=== PATIENT | male | born 1955 | race Asian ===

== ENCOUNTER 2016-06-25 16:18 | Inpatient (IN) | payer OTHER ==
[~2016-06-25] VITALS: Ht 172.7 cm; Wt 136.7 kg
[~2016-06-25 16:18] MED LIST: ALBU8.5H2 IH; CELE200C PO; FLUT1DIS5 IH; METO-272 PO; OMEP-113 PO; WARF10TA4 PO
[2016-06-25 16:34] VITALS: BP 151/86; PULSE 101; RESP 19; O2SAT 100
--- NOTE | 2016-06-25 16:47 | ED.REPORT ---
HPI-Chest Pain 40 and Over Date of Service June 25, 2016 ED Provider: Clair Doan MD 61 y/o male with a hx of DVT and asthma presents to the ED complaining of intermittent chest pain, onset just prior to arrival that lasts a couple of minutes. The pt was at his cardiology appointment when he began experiencing pain and was sent to the ED. He describes it as pressure on the left side of his chest, which worsens with walking. The pt reports this pain has been intermitted for a month and a half. The pt sees Dr. Harris for lower extremity edema. Associates sx include SOB and fatigue. He denies nausea and diaphoresis. He states he has been taking Lasix for a couple of weeks. The pt had pneumonia 2 months ago. Nursing Notes Stated Complaint: CARDIAC Chief Complaint: Chest Pain Nursing Notes Reviewed: Yes Allergies: Coded Allergies: No Known Allergies (Unverified Allergy, Unknown, 05/05/14) Scheduled Celecoxib (Celebrex) 200 Mg Capsule 200 MG PO DAILY Fluticasone/Salmeterol (Advair 500-50 Diskus) 1 Each Disk.w.dev 2 PUFF IH BID Metoprolol Succinate ER (Metoprolol Succinate ER) 50 Mg Tab.er.24h 50 MG PO DAILY Omeprazole Magnesium (Omeprazole) 20 Mg Capsule.dr 20 MG PO DAILY Warfarin Sodium (Warfarin Sodium) 10 Mg Tablet 15 MG PO DAILY 11/08/14 UPDATED DOSING Scheduled PRN Albuterol HFA (Proair HFA) 8.5 Gm Hfa.aer.ad 2 PUFFS IH Q4 PRN PRN For Shortness of Breath General Time Seen by MD: 16:47 Chief Complaint Chest pain Hx Obtained From: Patient Arrived By: Walk-in Sudden in Onset?: Yes Onset Occurred: Just prior to arrival Symptom Duration: 1 - 15 minutes Location: : Chest left Quality: Pressure Radiation: : Does not radiate Severity: Current: No pain currently Severity: Maximum: Mild Recent Healthcare: Recent doctor visit Similar Sx Previous: Yes Past Medical History Past Medical History No kidney problems per patient Reports: Asthma Past Surgical History Patient denies brain surgery Family History Brother has CHF and a Hx of brain aneurysm which killed him Other brother had PE recently which was taken care of Smoking History Never Smoker Social History Alcohol Use: Denies alcohol use Drug Use: Denies drug use Ambulatory Status Independent Review of Systems Constitutional: Reports: Fatigue Respiratory: Reports: Shortness of breath Cardiovascular: Reports: Chest pain, Denies: Edema GI: Denies: Nausea Skin: Denies Diaphoresis Complete sys rev & neg: except as marked. Physical Exam Initial Vital Signs Vital Signs (First) Date Time Temp Pulse Resp B/P Pulse Ox O2 Delivery O2 Flow Rate FiO2 06/25/16 16:34 37.1 101 19 151/86 100 Room Air Initial VS: Reviewed, Vital signs abnormal Head / Eyes: Atraumatic, Normocephalic, PERRL Neck: Supple, Full range of motion Extremities: Vascular intact, Neuro intact, No swelling, No tenderness Skin: Warm, Dry, No cyanosis Neurologic: Alert, Oriented, Nonfocal General/Constitutional: Awake, Alert, Cooperative Thickening of skin with lack of hair. Respiratory / Chest: Atraumatic, Breath sounds NL, Breath sounds = bilat, No respiratory distress, No rales, No rhonchi, No wheezing Cardiovascular: Heart rate NL, Regular rhythm, Heart sounds NL, No gallop, No murmurs, No rubs Lower Ext Edema: Positive: Bilateral 3+ Abdomen: Atraumatic, Soft, Non-tender, No guarding, No rebound, BS normoactive Interpretation & Diagnostics Lab Results Interpretation Result Diagram: 06/25/16 1655 06/25/16 1655 Test 06/25/16 16:55 White Blood Count 6.2th/mm3 (3.8-10.1) Red Blood Count 4.77mil/mm3 (4.40-5.80) Hemoglobin 11.6g/dL (13.8-17.2) Hematocrit 37.3% (41.0-50.0) Mean Corpuscular Volume 78.2fL (81-100) Mean Corpuscular Hemoglobin 24.3pg (27.0-35.0) Mean Corpuscular Hemoglobin Concent 31.1% (32.0-37.0) Red Cell Distribution Width 17.4% (12.3-15.4) Platelet Count 250bil/L (150-400) Neutrophils (%) (Auto) 68.5% (40-74) Lymphocytes (%) (Auto) 21.0% (14-46) Monocytes (%) (Auto) 8.6% (4-12) Eosinophils (%) (Auto) 1.3% (0-5) Basophils (%) (Auto) 0.3% (0-3) Prothrombin Time 10.7sec (8.1-12.5) Prothromb Time International Ratio 1.00ratio Sodium Level 139mEq/L (134-144) Potassium Level 4.1mEq/L (3.5-5.2) Chloride Level 98mEq/L (97-108) Carbon Dioxide Level 30mmol/L (18-29) Blood Urea Nitrogen 20mg/dL (6-24) Creatinine 0.85mg/dL (0.76-1.27) Estimat Glomerular Filtration Rate 98mL/min (>59) Glucose Level 94mg/dL (60-99) Calcium Level 9.0mg/dL (8.5-10.1) Magnesium Level 2.0mg/dL (1.6-2.6) Total Bilirubin 0.5mg/dL (0.0-1.2) Aspartate Amino Transf (AST/SGOT) 33U/L (0-50) Alanine Aminotransferase (ALT/SGPT) 21U/L (0-44) Alkaline Phosphatase 73U/L (25-160) Troponin T < 0.010ug/L (0.0-0.011) Pro-B-Type Natriuretic Peptide 3271pg/mL (0-210) Total Protein 8.3g/dL (6.4-8.4) Albumin 3.7g/dL (3.4-5.0) ECG Interpretation ECG Interpretation: Sinus arrhythmia. Rate 97 Increased QTC No acute ST or T wave changes Time: 16:49 Interpreted by: ED physician X-Ray Chest Interpretation Chest Xray Interpretation: IMPRESSION: Severe cardiomegaly as before, without acute cardiopulmonary disease. Dictated by: Juan Petty M.D. on 06/25/2016 at 17:10 Approved by: Juan Petty M.D. on 06/25/2016 at 17:11 View: Portable, 1 view Interpretation / Wet Read by: Interpret - Radiologist Re-Eval/Medical Decision Med Decision/Clinical Course The patient was sent from the cardiology office for an ejection fraction of 20% . A few years ago he had a normal ejection fraction. The patient has been feeling poorly over the last month. With regard to the patient's chest pain is atypical and does not sound ischemic in nature and he ruled out with a negative troponin and no ischemic EKG changes. His symptoms are related to his cardiac function. He appears to have right heart failure related to pulmonary hypertension. The patient has significant edema and will be diuresed here and evaluated further. Cardiology recommended another echocardiogram while in the hospital. Given the patient had a history of DVT and is no longer on Coumadin I considered pulmonary hypertension related to multiple pulmonary emboli however a CT angios negative. Consultation #1: Referral / Consult Name: Yanick Madrigal MD Consulted With: Cardiology Call Returned at: 18:00 Assisted Living Director: Agrees with eval, Agrees with plan Note: Dr. Madrigal believes the pt has right heart failure and recommends another echocardiogram. Hospitalists can contact him with any questions Consultation #2: Referral / Consult Name: Bran Mays MD Consulted With: Hospitalist Call Returned at: 18:27 Assisted Living Director: Will see patient, Agrees with eval, Agrees with plan, Accepts admit Counseled Regarding: Diagnosis, Lab results, Need for admission Discharge & Departure Primary Impression: Congestive heart failure Congestive heart failure type: diastolic Congestive heart failure chronicity : unspecified congestive heart failure chronicity Qualified Code: I50.30 - Unspecified diastolic (congestive) heart failure Additional Impressions: Anasarca Pulmonary hypertension Disposition: ADMITTED TO HOSPITAL Discharge Condition All VS Reviewed: Yes Referrals: Nick Roberson MD (PCP) Scribe Attestation Portions of this note were transcribed by Sudha Watson. I, , personally performed the history, physical exam and medical decision-making;I reviewed and confirmed the accuracy of the information in the transcribed note. Signed by David Saxena. 06/25/16 [id number] copies to: Nick Roberson MD, Jena M MD June 25, 2016 16:47 Sudha Watson June 25, 2016 16:58
[2016-06-25] MEDS ORDERED: Nitroglycerin 2% 1 Gm Ointment TOPICAL ONE (17:00)
[2016-06-25 17:09] LABS: BASOPHILS % (AUTO) 0.3 % (0-3); EOSINOPHILS % (AUTO) 1.3 % (0-5); MONOCYTES % (AUTO) 8.6 % (4-12); Mean Corpuscular Hemoglobin 24.3 pg (27.0-35.0); Mean Corpuscular Volume 78.2 fL (81-100); NEUTROPHILS % (AUTO) 68.5 % (40-74); Platelet Count 250 bil/L (150-400)
--- NOTE | 2016-06-25 17:18 | DRSVH ---
PROCEDURE: X-RAY CHEST ONE VIEW, PORTABLE ([id number]) INDICATIONS: 61-year-old male with intermittent chest pain. TECHNIQUE: One view of the chest was acquired. COMPARISON: [facility], CR, XR CHEST 2V AP/PA AND LAT, 04/30/2016, 10:42 AM. [facility], CR, XR CHEST 2VW, 01/02/2015, 16:08. FINDINGS: Surgical changes and devices: None. Lungs and pleura: No pleural effusions or pneumothorax. Lungs are clear. Mediastinum: Mediastinal contours appear normal. Severe cardiomegaly is unchanged. Bones and chest wall: No suspicious bony lesions. Overlying soft tissues appear unremarkable. IMPRESSION: Severe cardiomegaly as before, without acute cardiopulmonary disease. Dictated by: Juan Petty M.D. on 06/25/2016 at 17:10 Approved by: Juan Petty M.D. on 06/25/2016 at 17:11
[2016-06-25 17:48] LABS: TROPONIN T < 0.010 ug/L (0.0-0.011)
[2016-06-25 18:13] VITALS: BP 148/91; PULSE 91; RESP 21; O2SAT 100
--- NOTE | 2016-06-25 18:50 | DRSVH ---
PROCEDURE: CT ANGIO CHEST PULMONARY EMBOLISM ([id number]) INDICATIONS: 61 year-old male with shortness of breath and history of deep venous thrombosis. TECHNIQUE: After the administration of intravenous contrast, 2 mm thick sections acquired from the pulmonary api emperatriz to the posterior costophrenic angles. 3-dimensional maximum intensity projection (MIP) coronal a nd sagittal reformats were then acquired through the thorax. For radiation dose reduction, the follo wing was used: automated exposure control, adjustment of mA and/or kV according to patient size. COMPARISON: [facility], CR, XR CHEST 1VW (PORTABLE), 06/25/2016, 16:47. FINDINGS: Image quality: Excellent. Pulmonary arteries: Pulmonary arteries demonstrate no intraluminal filling defects to suggest centra l pulmonary embolism. Main pulmonary artery is prominent in caliber at 3.9 cm. Lungs and pleura: Lungs are clear. No pleural effusions or pneumothorax. Central and peripheral ai rways are patent. Mediastinum: There is moderate cardiomegaly, without pericardial effusion. No mediastinal or hilar a denopathy. Thoracic aorta is normal in caliber and enhancement. Esophagus is normal in caliber, sta tus post prior fundoplication procedure. Bones and chest wall: No suspicious bony lesions. Ribs and thoracic spine appear intact throughout. Thyroid gland is normal in size. No axillary or supraclavicular adenopathy. Abdomen: Visualized upper abdominal solid organs appear normal in the early arterial phase of enhanc ement. IMPRESSION: 1. No evidence for central pulmonary embolism. 2. Moderate cardiomegaly, as well as enlarged main pulmonary artery consistent with pulmonary arteria l hypertension. No secondary findings to suggest right congestive heart failure. Dictated by: Juan Petty M.D. on 06/25/2016 at 18:36 Approved by: Juan Petty M.D. on 06/25/2016 at 18:43
[2016-06-25] MEDS ORDERED: POTA-62 PO (19:23)
[2016-06-25] MEDS ORDERED: FRSM80T PO (19:23)
[2016-06-25] MEDS ORDERED: OMEP20CA11 PO (19:24)
[2016-06-25] MEDS ORDERED: Ondansetron 2 mg/mL 2 mL Inj IVPUSH PRN (19:25)
[2016-06-25] MEDS ORDERED: Alum-Mag Hydrox-Simeth 30 mL Suspension PO PRN (19:25)
[2016-06-25] MEDS ORDERED: Polyethylene Glycol (PEG) 17 Gm Powder PO PRN (19:25)
[2016-06-25] MEDS ORDERED: Heparin 25K Unit/500mL 0.45 NS 25,000 UNIT in IV Premix 1 EACH IV SCH ×3 (20:10→22:25)
[2016-06-25] MEDS ORDERED: Furosemide 10 mg/mL 10 mL Inj IVPUSH ONE (20:10)
[2016-06-25 20:39] VITALS: BP 145/92; PULSE 91; RESP 18; O2SAT 93
[2016-06-25] MEDS ORDERED: Heparin Protocol Boluses IVPUSH PRN (20:40)
[2016-06-25] MEDS ORDERED: Heparin 5,000 Unit/mL Inj IVPUSH ONE ×2 (20:40→22:25)
[2016-06-25 20:43] VITALS: PULSE 87
--- NOTE | 2016-06-25 20:54 | CONS ---
[address] [address] CONSULTATION REPORT PATIENT: RADHA PARDO : 1955 MR#: [id number] ADMIT: 06/25/2016 JOB ID: [id number] DATE OF SERVICE: 06/25/2016 CARDIOLOGY CONSULTATION NOTE--URGENT INITIAL EVALUATION (EMERGENCY DEPARTMENT): DATE OF EVALUATION: Saturday, June 25, 2016. CONSULTING PHYSICIAN: Cardiology--Yanick Madrigal MD. PROBLEMS: 1. Recent symptomatic deterioration (one month): a. Anasarca--he initially noted 21-pound weight gain in early. b. Dyspnea--functional class 3-4 dyspnea. c. Chest pain--mild but exertional and consistent with angina (2/10 to 3/10 pressure). 2. Cardiomyopathy: a. Systolic dysfunction--recent echo, June 21, 2016, shows ejection fraction 25% compared to report of previously normal echos. CORONARY ARTERY DISEASE RISK FACTORS: No history of diabetes. History of hypertension. No history of treated hyperlipidemia. Lifetime nonsmoker. No family history of premature coronary disease. OTHER PROBLEMS: 1. Morbid obesity (5 foot, 6 inches; and 350 pounds). 2. Probable sleep apnea--not using CPAP. 3. History of DVT--on lifetime Coumadin; but discontinued by patient because of tiredness in December 2015. CHIEF COMPLAINT: "Bloating". Mild chest pain. He does not note dyspnea until questioned. HISTORY OF PRESENT ILLNESS: PRESENTATION: I am glad to meet this 61-year-old man along with his daughter (a geriatric nurse); and his in the emergency department. He was seen in Cardiology clinic today (Jefferson Peterson) because of a recent outpatient echo on June 21 that showed new severe systolic dysfunction. Because of his one month history of progressive symptoms including chest discomfort, he was sent to the emergency department. On talking with him and his family, the overall picture is that he had some chronic exertional dyspnea, but then had a substantial change since the beginning of May where he 1st noted bloating and a 21-pound weight gain. He visited the [facility] Emergency Department twice including initially for his swelling, where he noted he could see the indentation of his fingers on his abdomen. Then he was seen for "pneumonia." He was started on Lasix 20 mg which did not help much. His outpatient physician increased to 80 mg which has only helped somewhat. He notes he has had severe chronic lower extremity stasis changes for a long time. He is also probably having PND and orthopnea. The symptoms are a bit atypical. He wakes up "screaming" from shortness of breath and has to sit up. This has been going on for some time but been consistent and frequent nightly recently. He now is functional class 3 at least and cannot walk up a flight of stairs. 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 CHEST PAIN: He describes the onset of chest discomfort in the past month. It is mild--only 2-3 intensity on a scale of 10. It is retrosternal. Also includes pressure but can be sharp and he admits (unconvincingly) that it might be pleuritic on inspiration. It is not positional. He has been using his asthma rescue inhaler more frequently including up to 3-4 times daily. His chest discomfort is exertional and the overall impression is that it is consistent with angina but not severe. His past cardiac history includes an evaluation in 2014 in Cardiology Clinic (Dr. Harris). At that time, he had a myocardial perfusion scan that was reported to show significant anterior ischemia. On additional analysis, on prone positioning, the anterior defect cleared and was felt to be artifact. He has not had a cardiac catheterization ever. Otherwise he has not had prior anginal symptoms; or discrete prior heart failure symptoms. Regarding arrhythmia, he does not report a history of arrhythmia or current symptoms of arrhythmia such as tachy palpitation, presyncope, or syncope. Regarding other possible underlying vascular disease, he has no history of CVA; no current symptoms of transient ischemic attack; and no claudication. Regarding possible dual antiplatelet therapy, he has no history of bleeding (except some red rectal bleeding on the toilet paper chronically); no anticipated surgery; and he reports he would be reliable to take mandatory medicines as needed. ALLERGIES: NO KNOWN ALLERGIES IN THE RECORD. PAST MEDICAL HISTORY: 1. Asthma--history of asthma, which was severe in childhood, and may be seasonal in the spring "when everything is blooming." 2. History of DVT. REVIEW OF SYSTEMS: I questioned them about a 13-point review of systems which is unremarkable, noncontributory, and negative except as noted including: No history of thyroid disorder. Pulmonary-- asthma as noted, not recently active. GI--history of a hiatal hernia with laparotomy for hiatal hernia surgery; and indigestion mostly relieved with omeprazole. No history of ulcer, hepatitis or jaundice. PERSONAL AND SOCIAL HISTORY: Cigarettes--lifetime nonsmoker despite his long history in the [place]. Alcohol--He reports little alcohol use. Drugs: He reports no other drug use. FAMILY HISTORY: One brother with a brain aneurysm and had heart failure. Another brother had PE recently. PHYSICAL EXAMINATION: General appearance: Very pleasant, middle-aged man who is comfortable at rest in the emergency department at 45 degrees sitting. Vital Signs: Initial vital signs, blood pressure 148/91, with heart rate 91, regular sinus rhythm on telemetry. Respiratory rate 20 and unlabored with pulse oximeter with O2 saturation 100% on room air. Afebrile. Neurologic/mental status: No overt focal neurologic defect noted. He is alert, oriented, appropriate and conversant. HEENT: PERRL, conjunctivae pink. Sclerae not icteric. Mouth and mucous membranes intact with Mallampati IV. Neck: Carotid upstroke difficult to feel due to habitus but appear unremarkable and without bruit bilaterally. Jugular venous pressure very difficult to assess due to habitus; but there appears to be venous pulsations at the ear sitting upright--estimate JVP 20 cm of water. Lungs: Clear to auscultation bilaterally without rales; but with rare wheeze on expiration. Cardiac: No chest wall tenderness. Heart examination: Notable for irregular rhythm with S4 gallop and no loud murmur. P2 seems normal. Abdomen: Tense and morbidly obese with abdominal wall pitting edema. Otherwise no tenderness, mass, hepatosplenomegaly or bruit of abdominal aortic aneurysm could be appreciated on examination limited by obesity. Extremities: 1+ pitting edema noted with marked chronic stasis changes and brawny edema to the knees. Pedal pulses difficult to feel bilaterally. DIAGNOSTIC STUDIES: Electrocardiogram: ECG shows borderline sinus tachycardia at 97 BPM with sinus rhythm but irregular rhythm of unclear etiology. No Q-waves. No LVH, nonspecific ST T-wave abnormalities and prolonged QTc without prior comparison ECG available. Chest x-ray: The chest x-ray film shows marked cardiomegaly but reportedly not new from prior chest x-ray. Borderline pulmonary venous hypertension as noted, but the chest x-ray is not impressive for heart failure, pulmonary edema otherwise. LABORATORY: CBC includes WBC 6200, with hemoglobin 11,600, hematocrit 37.3, low MCV 78.2, with low MCHC 31.1, and platelet count 250,000. INR 1.0. Chemistries include sodium 139, potassium 4.1, BUN 20, creatinine 0.85, glucose 94, magnesium 2.0. LFT unremarkable. Initial cardiac markers include troponin not elevated, less than 0.010 but markedly elevated proBNP 3271. Echocardiogram: I reviewed the images of the recent outpatient echo. It shows four-chamber enlargement with severe global systolic LV dysfunction with ejection fraction 25% to 30% and diffuse hypokinesia without regional wall motion defects. Septum is D shaped consistent with right-sided pressure and volume overload. Only mild mitral regurgitation is seen. Only mild tricuspid regurgitation is seen but there are hints of substantial tricuspid regurgitation. RV gradient is 25--suggesting PA pressure 45 if RA is 20. ASSESSMENT: I discussed the findings, impressions and management considerations with him and his family; as well as with the emergency department including: Anasarca, dyspnea and chest discomfort: He has had a clear-cut deterioration in the past six weeks with primarily marked edema but also dyspnea on top of chronic dyspnea ; and now new chest discomfort that is not impressive but consistent with angina. DIAGNOSTIC CONSIDERATIONS: He also has new severe systolic dysfunction of unclear etiology. Diagnostic considerations include idiopathic cardiomyopathy as well as ischemic cardiopathy to be ruled out. Therapeutically, the initial step seems to be to initiate substantial diuresis. Constriction appears unlikely. He has right-sided heart failure, more prominent than left-sided heart failure. RECOMMENDATIONS: 1. Admit to hospitalist. 2. Diurese. 3. Coronary workup--when improved and stabilized, catheterization including right heart catheterization and left heart catheterization are likely to be needed. 4. OMT--initiate guideline directed optimal medical therapy for his cardiomyopathy along with Lasix ; and including beta-santos when compensated and HARIS inhibitor and consider digoxin and spironolactone later.
[2016-06-25] MEDS ORDERED: 0.9% Sodium Chloride 250 ML ONE ×2 (20:59→23:04)
[2016-06-25] MEDS: 0.9% Sodium Chloride 1,000 ML IV SCH (23:10)
[2016-06-25] MEDS: Sodium Chloride LOK Flush 10 mL Syringe IVFLUSH SCH (23:36)
--- NOTE | 2016-06-25 23:45 | PCM.HPMED ---
Subjective Date of Service June 25, 2016 Primary Provider: Admitting Physician: Primary Care Physician: Nick Roberson MD Attending Physician: Chief Complaint: Chest pain History of Present Illness: Mr. Jones is a very pleasant 61-year-old obese gentleman presents today with Alley and daughter Kasandra, for one and a half month history of chest pain, fatigue and increased "swelling." He has a past medical history significant for DVT of the right lower leg at which point he was started on warfarin roughly 1 1/2 years ago and he reports discontinuing warfarin in January without consult physician. 5 year history of sleep apnea without use of CPAP machine, asthma, pulmonary hypertension. For the past 1-1/2 months patient has experienced intermittent sharp short-lived chest pain located directly over his left pectoral area. He states that it would come and go without being aggravated by anything in particular and not relieved by anything in particular as well. For 1-1/2 months ago the patient was able to ambulate up stairs at home however since then he has to rest every 4 steps. He also reports severely increased lower extremity edema during that time but eventually spread all the way up to his face. He visited the emergency department twice in the last month in [place] at which point they started him on 40 of Lasix daily. He was referred for an echocardiogram jun 21 2016 which showed severely reduced ejection fraction of 20-25%. He denies dizziness, syncope, change in vision, headache, shortness of breath at rest, cough, nausea, vomiting, fever, chills, abdominal pain, dysuria, constipation or diarrhea, and no pain of any sort. No distal extremity pain bilaterally. Patient reports chest pain relieved with nitroglycerin patch, dyspnea on exertion. He is currently taking 80 of Lasix daily, 120 mEq of potassium daily, 20 mg daily omeprazole, Advair twice a day and for the past month patient has been using his Provera 5-6 times per day which is an increase from once per week before that time. In the emergency department patient's temperature was 37.1, pulse 101, respiratory rate 19, blood pressure 151/86, pulse ox 100% on room air. EKG showed atrial fibrillation with a rate of around 100. Chest x-ray showed cardiomegaly and angiography CT confirmed cardiomegaly, with no pulmonary embolism. Review of Systems: A comprehensive review of systems was conducted with the patient and found to be negative except as above in the History of Present Illness. Allergies Coded Allergies: No Known Allergies (Unverified Allergy, Unknown, 06/25/16) Home Medications 80 mg by mouth Lasix daily 20 mEq potassium daily 20 mg omeprazole daily Advair twice a day Pro-air when necessary Warfarin patient is discontinued. PMH Asthma CHF GERD Right lower leg DVT Thrombophlebitis Esophageal stricture and hiatal hernia Surgical History Hiatal hernia repair greater than 25 years ago Family History Mother has congestive heart failure and hypertension, maternal grandmother passed from [place] Father had hypertension and gout Brother has CHF and a Hx of brain aneurysm which killed him Other brother had PE recently which was taken care of Social History Occupation: frozen foods manager Hx Alcohol Use: Yes (1q 3 months) Hx Substance Use: No Hx Tobacco Use: No Smoking Status: Never Smoker Exam Vital Signs Vital Sign - Last Date Time Temp Pulse Resp B/P Pulse Ox O2 Delivery O2 Flow Rate FiO2 06/25/16 18:13 37.0 91 21 148/91 100 Room Air Exam General: Pleasant late middle-aged obese gentleman sitting up in bed in no acute distress, well-developed, well-nourished, appropriately interactive HEENT: Normocephalic, atraumatic. External ears without defect. Pupils equal, round, and reactive to light and accommodation. Anicteric sclerae, moist conjunctivae, and no lid lag. Oropharynx free of erythema and cobble stoning with moist mucosa. Neck: Supple with full range of motion. No jugular venous distension. No bruits. No lymphadenopathy or thyromegaly. Cardiovascular: Irregularly irregular rate and rhythm, with no murmurs, rubs, or gallops appreciated Pulmonary: Clear to auscultation bilaterally with very mild wheezes, no crackles or rhonchi auscultated. Normal respiratory effort with no use of accessory muscles. Abdomen: Bowel tones present. Soft, significant central adiposity, nontender, nondistended. No hepatosplenomegaly or masses appreciated. Extremities: No clubbing, possible spoon nails, cyanosis, very mild lower extremity pitting edema along the anterior lower leg, or lymphadenopathy appreciated. Significant chronic venous stasis dermatitis lower extremities. No anasarca present. Skin: Normal temperature, turgor, and texture; no rash, ulcers, or subcutaneous nodules appreciated. Neurological: Cranial nerves grossly intact. Normal muscle strength, tone, and bulk. Reflexes, coordination, and sensory function within normal limits. No known gait impairment. Psychiatric: Normal mood and affect. Alert and oriented to person, place, and time. Lab and Diagnostics Result Diagram: 06/25/16 1655 06/25/161654 X-Rays, CTs and MRIs CT ANGIO CHEST PULMONARY EMBOLISM IMPRESSION: 1. No evidence for central pulmonary embolism. 2. Moderate cardiomegaly, as well as enlarged main pulmonary artery consistent with pulmonary arterial hypertension. No secondary findings to suggest right congestive heart failure. Dictated by: Juan Petty M.D. on 06/25/2016 at 18:36 X-RAY CHEST ONE VIEW, PORTABLE IMPRESSION: Severe cardiomegaly as before, without acute cardiopulmonary disease. Dictated by: Juan Petty M.D. on 06/25/2016 at 17:10 Cardiac Echo Impressions Echocardiogram Report Interpretation Summary Sinus tachycardia. Severely dilated LV; severely reduced LV systolic function estimated at 20- 25% . EPSS is 1.6 consistent with severe cardiomyopathy. Severe biatrial enlargement. Moderate RV enlargement. No significant valvular abnormalities. No prior study available for comparison. Assessment & Plan Mr. Jones is a very pleasant 61-year-old obese gentleman presents today with Alley and daughter Kasandra, for one and a half month history of chest pain, fatigue and increased "swelling." For the past 1-1/2 months patient has experienced intermittent sharp short-lived chest pain located directly over his left pectoral area. He states that it would come and go without being aggravated by anything in particular and not relieved by anything in particular as well. For 1-1/2 months ago the patient was able to ambulate up stairs at home however since then he has to rest every 4 steps. He also reports severely increased lower extremity edema during that time but eventually spread all the way up to his face. He visited the emergency department twice in the last month in [place] at which point they started him on 40 of Lasix daily. He was referred for an echocardiogram jun 21 2016 which showed a severely reduced ejection fraction of 20-25%. Acute on Chronic systolic Heart failure or HFrEF, present on admission. Active. Trigger unclear but patient compliant with medications and low sodium diet. No evidence of infection. - ECHO as above, EF 20-25% - Trending tropes - IV Lasix 80 bid, Almanza in place. - Cardiology aware of patient, recommendations greatly appreciated. Stable angina, present on admission. Active. - Nitropatch completely relieve patient's symptoms, when necessary nitroglycerin patch. - IV morphine for chest pain otherwise uncontrolled with Nitropatch. - Cardiac heparin drip initiated bridging to warfarin. - Cardiology following with recommendations. , - Diurese. - Coronary workup--when improved and stabilized, catheterization including right heart catheterization and left heart catheterization are likely to be needed. - OMT--initiate guideline directed optimal medical therapy for his cardiomyopathy along with Lasix ; and including beta-santos when compensated and HARIS inhibitor and consider digoxin and spironolactone later. Atrial fibrillation, present on admission. Active. - With history of right lower leg DVT and recommendations by cardiology to be on lifelong warfarin, start cardiac In drip and reinitiate warfarin. - Cardiology following. Dyspnea on exertion, present on admission. Active. - Likely secondary to combination atrial fibrillation, congestive heart failure , pulmonary hypertension and obesity hypoventilation syndrome. - CT PE negative. - Nadir/PRN duoneb/albuterol Sleep apnea, present on admission. Active. - Continue nightly CPAP. Morbid obesity, present admission. Active. - Cardiac diet. - Physical therapy recommended. Other chronic conditions. GERD, present admission. Intact. - Continue home omeprazole 20 mg daily. Acetaminophen for mild pain when necessary. Bowel regimen Senna and MiraLAX scheduled and PRN. Zofran when necessary for nausea and vomiting. Cardiac heparin initiated. SCDs in place. Disposition: Patient to be admitted as inpatient status. Likely here for > 2 midnights. Dependent upon respiratory and cardiac status. Will be discharged home when medically stable. Pain Evaluation: Adequate Pain Control Attending Statement The patient was seen and examined together with Dr. Epstein on 06/25 and I agree with the history, exam and plan as outlined in the note above. BRIANA EPSTEIN DO June 25, 2016 19:15 Prabhjot Rosa MD June 26, 2016 01:26
[2016-06-26] VITALS (7 sets, daily range): BP systolic 107–136; BP diastolic 63–83; PULSE 70–95; RESP 18–20; O2SAT 92–97
[2016-06-26] MEDS: Heparin Protocol Boluses IVPUSH PRN ×3 (05:12→17:31)
--- NOTE | 2016-06-26 06:08 | NUR ---
Admit to room 3016 @ 20:39 with cardiomyopathy. Oriented x3, to room and POC on whiteboard. BP 145/92 P 91 and O2 Sat 93% on RA. CPAP at home and will have family bring in. EM pitting edema and order placed for TC Bariatric order placed. Up independent with non-slip socks on.
--- NOTE | 2016-06-26 06:15 | NUR ---
Med Rec completed by admit nurse and medications reviewed with patient.
[2016-06-26] MEDS: 0.9% Sodium Chloride 1,000 ML IV SCH (08:38)
[2016-06-26] MEDS: Furosemide 10 mg/mL 10 mL Inj IVPUSH SCH ×2 (08:45→20:46)
[2016-06-26] MEDS: Sodium Chloride LOK Flush 10 mL Syringe IVFLUSH SCH ×3 (08:48→23:44)
--- NOTE | 2016-06-26 08:50 | NUR ---
Social Work: Screening Data: Pt is a 61 y/o male admitted for CHF, cardiomyopathy. Pt's PCP is Dr Roberson. Pt's insurance is [employer] EMR reviewed, readmit score not listed. PLASTIC SURGERY COORDINATOR will follow up with pt regarding HH due to CHF diagnosis. PLASTIC SURGERY COORDINATOR will continue to follow. Assessment: Pt who is independent at baseline. Plan: Pt will d/c home via POV when medically stable. PLASTIC SURGERY COORDINATOR will follow up with pt regarding HH due to CHF diagnosis. PLASTIC SURGERY COORDINATOR will continue to follow. DELMI Valle
[2016-06-26 11:02] LABS: INR 1.03 ratio
--- NOTE | 2016-06-26 11:38 | NUR ---
Social Work: Continued d/c planning Data: Pt is on day 1 of hospitalization. EMR reviewed. NIGHT MANAGER met with pt regarding d/c planning. NIGHT MANAGER explained and offered HH services regarding pt's CHF diagnosis. Pt declines at this time. NIGHT MANAGER left phone number and plan on board. No further d/c planning needs anticipated at this time. NIGHT MANAGER will continue to follow if needs arise. Assessment: Pt who is independent at baseline. Plan: Pt will d/c home via POV when medically stable. No further d/c planning needs anticipated at this time. NIGHT MANAGER will continue to follow if needs arise. DELMI Valle
[2016-06-26] MEDS: Fluticasone-Salmeterol 500-50 Inhaler INHALATION SCH ×2 (15:14→20:46)
[2016-06-26] MEDS ORDERED: Albuterol 2.5 mg/3 mL Inhalation Solution NEB PRN (16:00)
--- NOTE | 2016-06-26 16:18 | PCM.PHAPRO ---
Progress Date of Service: June 26, 2016 Warfarin dosing Date June 26-June INR 1.0 1.03 INR change 0.03 Warf Dose 10 MG 10 MG A/ INR is sub therapeutic today. Patient is a new warfarin start currently on an IV heparin drip. P/ Continue with one more dose of 10 mg of warfarin and reevaluate with AM labs tomorrow. Nick Steward June 26, 2016 16:18
--- NOTE | 2016-06-26 17:38 | PROG NOTE ---
[address] [address] PROGRESS NOTE PATIENT: RADHA PARDO : 1955 MR#: [id number] ADMIT: 06/25/2016 JOB ID: [id number] CARDIOLOGY CONSULTATION PROGRESS NOTE -- FOLLOWUP INPATIENT VISIT: DATE: Friday, June 26, 2016 CONSULTING PHYSICIAN: Cardiology -- Yanick Madrigal MD PROBLEMS: 1. Heart failure: a. New diagnosis -- left heart failure; and prominent right heart failure with anasarca. b. Left ventricular dysfunction -- new diagnosis; severe with ejection fraction 25% with diffuse hypokinesia and etiology not yet determined. 2. Abnormal rhythm -- consider MAT (multifocal atrial tachycardia). 3. Morbid obesity. 4. History of DVT -- plan for lifetime anticoagulation; to resume anticoagulation that patient had discontinued; and CTPE on admission was negative. HOSPITAL COURSE AND INTERIM PROGRESS: (HOSPITAL DAY 2) I saw this 61-year-old man on Cardiology rounds today on the [facility]. I discussed his details in progress at length with him; and with the primary hospitalist team; and with Cardiology. Overnight he has remained stable and did not have nocturnal dyspnea. Diuresis was initiated and he had net diuresis of -2500 cc. MEDICATIONS: Include aspirin, IV heparin and Coumadin has been started, Lasix 80 mg IV was used for diuresis. He remains on his prior pravastatin 10 mg. OBJECTIVE: Examination: Vital signs stable with blood pressure 121/82, heart rate 89, irregular, and O2 saturation 95% on room air. Weight on admission was 148 kg, now 142 kg. His examination is otherwise unchanged today with JVP difficult to assess but likely very high to the ears sitting up. His lungs are clear. He has abdominal wall pitting; and only modest peripheral pitting edema with severe chronic venous stasis changes. ASSESSMENT: 1. He is stable, doing well and making progress with good early mobilization of fluid with a large net diuresis. Likely he has more than 20 pounds to diurese before stable. 2. Congestive heart failure: The etiology of his new severe systolic dysfunction is not overt. The overall picture is not suggestive of obvious coronary disease, although he does have new mild and atypical but exertional chest discomfort that is consistent with angina. He has not used a lot of alcohol. RECOMMENDATION: 1. Continue diuresis -- as discussed, aim for one liter net diuresis each day; or more if it continues to be well tolerated and he mobilizes fluid well; and as we discussed, aim for diuresis of about 100 cc or more per hour during the daytime hours. Can consider Lasix drip or pretreatment with thiazide diuretic if diuresis becomes more difficult. Will need to maintain potassium, magnesium, and avoid progressive metabolic alkalosis. 2. Cardiac catheterization -- would plan for right heart catheterization and left heart catheterization when he reaches close to baseline. He will need to be off Coumadin at that time; and can be maintained on heparin currently. Note: The heparin was started because of consideration of atrial fibrillation but he is not in atrial fibrillation. The indication for anticoagulation is based on the history of prior unprovoked DVT; and note he has had Oncology outpatient evaluation with plan for continued Coumadin; with continued anticoagulation; and anticoagulation has been restarted after the patient stopped it in December 2015 because he was "tired." 3. Followup ECG -- would follow his rhythm which appears to be possible multifocal atrial tachycardia or PACs. I discussed with Cardiology for followup in my absence after today.
--- NOTE | 2016-06-26 23:13 | NUR ---
Chest Pain Pt complained of continuos throbbing left sided chest pain "4" out of 10. Pt reports pain is "similar to pain from before when they put Nitro paste on my chest." Stat EKG ordered, no changes. MD notified. New order: Nitropaste PRN for chest pain. Chest pain resolved before giving Morphine or Nitro. Pt encouraged to notify RN if pain returns. Call light within reach, using appropriately. Will continue to monitor.
[2016-06-26] MEDS ORDERED: Nitroglycerin 2% 1 Gm Ointment TOPICAL PRN (23:25)
[2016-06-27] VITALS (12 sets, daily range): BP systolic 99–130; BP diastolic 63–85; PULSE 71–104; RESP 16–20; O2SAT 92–98
[2016-06-27] MEDS: Heparin Protocol Boluses IVPUSH PRN ×3 (05:08→19:22)
[2016-06-27 07:01] LABS: INR 1.08 ratio
[2016-06-27] MEDS: Sodium Chloride LOK Flush 10 mL Syringe IVFLUSH SCH ×2 (08:30→16:30)
[2016-06-27] MEDS: Fluticasone-Salmeterol 500-50 Inhaler INHALATION SCH ×2 (09:13→20:32)
[2016-06-27] MEDS: Furosemide 10 mg/mL 10 mL Inj IVPUSH SCH ×2 (09:15→20:32)
--- NOTE | 2016-06-27 13:27 | PCM.PHAPRO ---
Progress Warfarin dosing WARFARIN NEW START DOSING DAY #3 INDICATION: CARDIOMYOPATHY W/EF 20% AND HISTORY OF PE GOAL INR: 2-3 Today's INR 1.08 Date June 26-June 27-June INR 1.0 1.03 1.08 INR change 0.03 0.05 Warf Dose 10 MG 10 MG 5MG PLAN: * give 5mg for today's warfarin dose * continue to follow patient and monitor/dose warfarin Faina Horan Pharm.D June 27, 2016 13:27
--- NOTE | 2016-06-27 15:59 | PROG NOTE ---
[address] [address] PROGRESS NOTE PATIENT: RADHA PARDO : 1955 MR#: [id number] ADMIT: 06/25/2016 JOB ID: [id number] DATE: 06/27/2016 SUBJECTIVE: The patient is feeling better. He is losing weight. His breathing has improved. Denies any active chest pain or new cardiovascular symptoms. VITAL SIGNS: Blood pressure 117/81, heart rate 80-113. Respiratory rate 16, oxygen saturation room air 96%. HEENT: No significant anemia, jaundice. Neck: Positive hepatojugular reflux. Chest: Decreased air entry at the bases. CVS: S1 appears normal. P2 appears prominent. No obvious S3-S4. Soft ejection systolic murmur at the apex. Abdomen: Obese. Extremities: 1-2+ bilateral pedal edema with scaly skin. Vascular: No evidence of critical limb ischemia. LINE INSPECTOR: Alert, oriented to time, place and person. LABORATORIES: Sodium 139, potassium 3.7, BUN 18, creatinine 0.83. Serial troponin normal. Hemoglobin 11.6, hematocrit 37.9. Echocardiogram on June 21, 2016 revealed severely dilated left ventricle with LV ejection fraction 20%-25% with global hypokinesis. Moderately dilated right ventricle without any significant valvular pathology. ASSESSMENT AND PLAN: Acute on chronic congestive heart failure with anasarca due to congestive heart failure which is predominantly systolic with dilated cardiomyopathy with symptoms of exertional angina, patient ruled out for acute myocardial infarction with morbid obesity, history of DVT in the past, multifocal atrial tachycardia episode as per Dr. Madrigal. The patient is responding to medical treatment. Today, he has negative balance of 1815 and prior to that, 3613 mL. At present, he is hemodynamically stable. We will start carvedilol 3.125 mg twice a day as well as spironolactone 12.5 mg daily. Will continue IV Lasix and HARIS inhibitor. He is getting IV heparin. He used to be on Coumadin, but then he stopped taking it as he had DVT. The patient will need left heart catheterization once he becomes more euvolemic. Hence, at this point of time, will not start Coumadin but will continue heparin. Discussed the plan with the patient and his family members including his daughter who is a nurse. They understood. Will check electrolytes. Tomorrow my associate, Dr. Nuno, will evaluate the patient. TOTAL TIME SPENT: Today about 35 minutes. ALYSSA
--- NOTE | 2016-06-27 18:09 | NUR ---
Cardiac VSS. See flowsheet. No c/o pain. Denies chest pain entire shift.
--- NOTE | 2016-06-27 20:25 | PCM.PNMED ---
Subjective Date of Service June 27, 2016 Subjective Patient is seen and examined. He appears much more comfortable today. He states that he is not dyspneic he has no chest pain. He states that he is still not back to his baseline in terms of swellin. He has no other concerns Exam Vital Signs Vital Sign - Last Date Time Temp Pulse Resp B/P Pulse Ox O2 Delivery O2 Flow Rate FiO2 06/27/16 20:00 84 18 98 Room Air 06/27/16 18:07 36.8 120/76 Intake and Output 06/26/16 06/26/16 06/27/16 Cumulative From/Thru 15:00 23:00 07:00 06/25/16 16:34 - 06/27/16 05:36 Intake Total 2018 ml 700 ml 4112 ml Output Total 3100 ml 2515 ml 9540 ml Balance -1082 ml -1815 ml -5428 ml Intake Oral 1460 ml 700 ml 2860 ml IV Total 558 ml 1252 ml Output Urine Total 3100 ml 2515 ml 9540 ml Exam General: Pleasant late middle-aged obese gentleman sitting up in bed in no acute distress, well-developed, well-nourished, appropriately interactive HEENT: Normocephalic, atraumatic. External ears without defect. P Neck: Supple with full range of motion. No jugular venous distension. No bruits. No lymphadenopathy or thyromegaly. Cardiovascular: Irregularly irregular rate and rhythm, with no murmurs, rubs, or gallops appreciated Pulmonary: Clear to auscultation bilaterally with no wheezes, no crackles or rhonchi auscultated. Normal respiratory effort with no use of accessory muscles. Abdomen: Bowel tones present. Soft, significant central adiposity, nontender, nondistended. No hepatosplenomegaly or masses appreciated. Extremities: Significant chronic venous stasis dermatitis lower extremities. No anasarca present. Swelling improved Skin: Normal temperature, turgor, and texture; no rash, ulcers, or subcutaneous nodules appreciated. Neurological: No focal deficits Psychiatric: Normal mood and affect. Alert and oriented to person, place, and time. IVs and Medications Medications Reviewed: Medications were reviewed in detail Lab and Diagnostics Result Diagram: 06/27/16 0552 06/26/16 0420 X-Rays, CTs and MRIs CT ANGIO CHEST PULMONARY EMBOLISM IMPRESSION: 1. No evidence for central pulmonary embolism. 2. Moderate cardiomegaly, as well as enlarged main pulmonary artery consistent with pulmonary arterial hypertension. No secondary findings to suggest right congestive heart failure. Dictated by: Juan Petty M.D. on 06/25/2016 at 18:36 X-RAY CHEST ONE VIEW, PORTABLE IMPRESSION: Severe cardiomegaly as before, without acute cardiopulmonary disease. Dictated by: Juan Petty M.D. on 06/25/2016 at 17:10 Cardiac Echo Impressions Echocardiogram Report Interpretation Summary Sinus tachycardia. Severely dilated LV; severely reduced LV systolic function estimated at 20- 25% . EPSS is 1.6 consistent with severe cardiomyopathy. Severe biatrial enlargement. Moderate RV enlargement. No significant valvular abnormalities. No prior study available for comparison. Assessment & Plan Mr. Jones is a very pleasant 61-year-old obese gentleman presents today with Alley and daughter Kasandra, for one and a half month history of chest pain, fatigue and increased "swelling." For the past 1-1/2 months patient has experienced intermittent sharp short-lived chest pain located directly over his left pectoral area. He states that it would come and go without being aggravated by anything in particular and not relieved by anything in particular as well. For 1-1/2 months ago the patient was able to ambulate up stairs at home however since then he has to rest every 4 steps. He also reports severely increased lower extremity edema during that time but eventually spread all the way up to his face. He visited the emergency department twice in the last month in [place] at which point they started him on 40 of Lasix daily. He was referred for an echocardiogram jun 21 2016 which showed a severely reduced ejection fraction of 20-25%. Acute on Chronic systolic Heart failure or HFrEF, present on admission. Active. Trigger unclear but patient compliant with medications and low sodium diet. No evidence of infection. - ECHO as above, EF 20-25% - Trending tropes: ACS was ruled out - IV Lasix 80 bid, Almanza in place. - Cardiology aware of patient, recommendations greatly appreciated. -- Cardiology feels that once his euvolemic patient can be taken for left heart catheterization. Dr. Nuno to see the patient on 06/28 -- Coumadin was stopped on 06/27 by cardiology -- New medication spironolactone and Coreg are added -- Cardiology may consider a LifeVest/ICD Stable angina, present on admission. Active. - Nitropatch completely relieve patient's symptoms, when necessary nitroglycerin patch. - IV morphine for chest pain otherwise uncontrolled with Nitropatch. - Cardiac heparin drip initiated bridging to warfarin. - Cardiology following with recommendations. , - Diurese. - Coronary workup--when improved and stabilized, catheterization including right heart catheterization and left heart catheterization are likely to be needed. - Patient is now on Lasix, beta santos, statin, , HARIS inhibitor as well as spironolactone Atrial fibrillation, present on admission. Active. - With history of right lower leg DVT and recommendations by cardiology to be on lifelong warfarin, start cardiac In drip and reinitiate warfarin: Coumadin is stopped on 06/27 preparation for theCatheterization - Cardiology following. Dyspnea on exertion, present on admission. Much improved - Likely secondary to combination atrial fibrillation, congestive heart failure , pulmonary hypertension and obesity hypoventilation syndrome. - CT PE negative. - Nadir/PRN duoneb/albuterol Sleep apnea, present on admission. Active. - Continue nightly CPAP. Morbid obesity, present admission. Active. - Cardiac diet. - Physical therapy recommended. Other chronic conditions. GERD, present admission. Intact. - Continue home omeprazole 20 mg daily. Acetaminophen for mild pain when necessary. Bowel regimen Senna and MiraLAX scheduled and PRN. Zofran when necessary for nausea and vomiting. Cardiac heparin initiated. SCDs in place. Disposition: Patient to be admitted as inpatient status. Likely here for > 2 midnights. Dependent upon respiratory and cardiac status. Will be discharged home when medically stable after receiving a cath procedure. Angelia Zamora DO June 27, 2016 20:25
--- NOTE | 2016-06-27 20:37 | PCM.PNMED ---
Subjective Date of Service June 27, 2016 Subjective Patient is seen and examined he says that he is feeling better. He states he stopped wearing CPAP due to discomfort over his face. He reveals to me that he actually was asked to be on Coumadin for the rest of his life as he is found to have atrial fibrillation in the past along with DVT but he took himself off of it after being on it for 1.5 years ago Exam Vital Signs Vital Sign - Last Date Time Temp Pulse Resp B/P Pulse Ox O2 Delivery O2 Flow Rate FiO2 06/27/16 20:00 84 18 98 Room Air 06/27/16 18:07 36.8 120/76 Intake and Output 06/26/16 06/26/16 06/27/16 Cumulative From/Thru 15:00 23:00 07:00 06/25/16 16:34 - 06/27/16 05:36 Intake Total 2018 ml 700 ml 4112 ml Output Total 3100 ml 2515 ml 9540 ml Balance -1082 ml -1815 ml -5428 ml Intake Oral 1460 ml 700 ml 2860 ml IV Total 558 ml 1252 ml Output Urine Total 3100 ml 2515 ml 9540 ml Exam General: Pleasant late middle-aged obese gentleman sitting up in bed in no acute distress, well-developed, well-nourished, appropriately interactive HEENT: Normocephalic, atraumatic. External ears without defect. Pupils equal, round, and reactive to light and accommodation. Anicteric sclerae, moist conjunctivae, and no lid lag. Oropharynx free of erythema and cobble stoning with moist mucosa. Neck: Supple with full range of motion. No jugular venous distension. No bruits. No lymphadenopathy or thyromegaly. Cardiovascular: Irregularly irregular rate and rhythm, with no murmurs, rubs, or gallops appreciated Pulmonary: Clear to auscultation bilaterally with very mild wheezes, no crackles or rhonchi auscultated. Normal respiratory effort with no use of accessory muscles. Abdomen: Bowel tones present. Soft, significant central adiposity, nontender, nondistended. No hepatosplenomegaly or masses appreciated. Extremities: lower extremity pitting edema along the anterior lower leg, or lymphadenopathy appreciated. Significant chronic venous stasis dermatitis lower extremities. No anasarca present. Skin: Normal temperature, turgor, and texture; no rash, ulcers, or subcutaneous nodules appreciated. Neurological: Cranial nerves grossly intact. Normal muscle strength, tone, and bulk. Reflexes, coordination, and sensory function within normal limits. No known gait impairment. Psychiatric: Normal mood and affect. Alert and oriented to person, place, and time. IVs and Medications Medications Reviewed: Medications were reviewed in detail Lab and Diagnostics Result Diagram: 06/27/16 0552 06/26/16 0420 X-Rays, CTs and MRIs CT ANGIO CHEST PULMONARY EMBOLISM IMPRESSION: 1. No evidence for central pulmonary embolism. 2. Moderate cardiomegaly, as well as enlarged main pulmonary artery consistent with pulmonary arterial hypertension. No secondary findings to suggest right congestive heart failure. Dictated by: Juan Petty M.D. on 06/25/2016 at 18:36 X-RAY CHEST ONE VIEW, PORTABLE IMPRESSION: Severe cardiomegaly as before, without acute cardiopulmonary disease. Dictated by: Juan Petty M.D. on 06/25/2016 at 17:10 Cardiac Echo Impressions Echocardiogram Report Interpretation Summary Sinus tachycardia. Severely dilated LV; severely reduced LV systolic function estimated at 20- 25% . EPSS is 1.6 consistent with severe cardiomyopathy. Severe biatrial enlargement. Moderate RV enlargement. No significant valvular abnormalities. No prior study available for comparison. Assessment & Plan Mr. Jones is a very pleasant 61-year-old obese gentleman presents today with Alley and daughter Kasandra, for one and a half month history of chest pain, fatigue and increased "swelling." For the past 1-1/2 months patient has experienced intermittent sharp short-lived chest pain located directly over his left pectoral area. He states that it would come and go without being aggravated by anything in particular and not relieved by anything in particular as well. For 1-1/2 months ago the patient was able to ambulate up stairs at home however since then he has to rest every 4 steps. He also reports severely increased lower extremity edema during that time but eventually spread all the way up to his face. He visited the emergency department twice in the last month in [place] at which point they started him on 40 of Lasix daily. He was referred for an echocardiogram jun 21 2016 which showed a severely reduced ejection fraction of 20-25%. Acute on Chronic systolic Heart failure or HFrEF, present on admission. Active. Trigger unclear but patient compliant with medications and low sodium diet. No evidence of infection. - ECHO as above, EF 20-25% per echo performed on 06/21 - Trending tropes: ACS was ruled out - IV Lasix 80 bid, Almnaza in place. - Cardiology aware of patient, recommendations greatly appreciated. -- Cardiology feels that once his euvolemic patient can be taken for left heart catheterization. Dr. Pierce to see the patient on 06/28 -- Cardiology may consider a LifeVest/ICD -- Appreciate Dr. rosales recommendations, Dr. Herrera stasis stress test 2 years ago was decided to be negative after extensive review. Stable angina, present on admission. Active. - Nitropatch completely relieve patient's symptoms, when necessary nitroglycerin patch. - IV morphine for chest pain otherwise uncontrolled with Nitropatch. - Cardiac heparin drip initiated bridging to warfarin. - Cardiology following with recommendations. , - Diurese. - Coronary workup--when improved and stabilized, catheterization including right heart catheterization and left heart catheterization are likely to be needed. Atrial fibrillation, present on admission. Active. - With history of right lower leg DVT and recommendations by cardiology to be on lifelong warfarin, start cardiac In drip and reinitiate warfarin - Cardiology following. Dyspnea on exertion, present on admission. Much improved - Likely secondary to combination atrial fibrillation, congestive heart failure , pulmonary hypertension and obesity hypoventilation syndrome. - CT PE negative. - Nadir/PRN duoneb/albuterol Sleep apnea, present on admission. Active. - Continue nightly CPAP. Morbid obesity, present admission. Active. - Cardiac diet. - Physical therapy recommended. Other chronic conditions. GERD, present admission. Intact. - Continue home omeprazole 20 mg daily. Acetaminophen for mild pain when necessary. Bowel regimen Senna and MiraLAX scheduled and PRN. Zofran when necessary for nausea and vomiting. Cardiac heparin initiated. SCDs in place. Disposition: Patient to be admitted as inpatient status. Likely here for > 2 midnights. Dependent upon respiratory and cardiac status. Will be discharged home when medically stable after receiving a cath procedure. VTE Prophylaxis: Other (heparin drip) Angelia Zamora DO June 27, 2016 20:37
[2016-06-28] VITALS (18 sets, daily range): BP systolic 100–136; BP diastolic 50–92; PULSE 67–102; RESP 14–20; O2SAT 92–100
[2016-06-28] MEDS: Sodium Chloride LOK Flush 10 mL Syringe IVFLUSH SCH ×4 (00:22→20:21)
[2016-06-28 07:56] LABS: INR 1.12 ratio
--- NOTE | 2016-06-28 08:01 | NUR ---
Heparin gtt PTT 69.6. No change to Heparin gtt. 1575 units/hour. Next PTT lab draw in the AM.
--- NOTE | 2016-06-28 08:56 | PCM.PNMED ---
Subjective Date of Service June 28, 2016 Subjective Patient is comfortable, no longer dyspneic on exertion. INR is still 1.12, called cards they want him on NPO diet. Lasix is cut to 40mg TID, BNP trending down to 1000's. He says that he wants to go home if possible soon. Exam Vital Signs Vital Sign - Last Date Time Temp Pulse Resp B/P Pulse Ox O2 Delivery O2 Flow Rate FiO2 06/28/16 06:15 75 06/28/16 05:45 36.6 18 116/73 95 Room Air Intake and Output 06/27/16 06/27/16 06/28/16 Cumulative From/Thru 15:00 23:00 07:00 06/25/16 16:34 - 06/28/16 06:41 Intake Total 1637 ml 800 ml 6549 ml Output Total 1775 ml 2425 ml 95500 ml Balance -138 ml -1625 ml -7191 ml Intake Oral 1000 ml 800 ml 4660 ml IV Total 637 ml 1889 ml Output Urine Total 1775 ml 2425 ml 53359 ml # Bowel Movements 2 2 Exam General: NAD HEENT: NCAT Neck: Right side positive for JVD. Abd: Obese, NT/ND, normal BS Ext: Much much improved, positive for chronic venous stasis w/o erythema Psych: neg for anxiety Neuro: No focal deficits IVs and Medications IV Fluids None Medications Reviewed: Medications were reviewed in detail Lab and Diagnostics Result Diagram: 06/27/16 0552 06/28/16 0640 X-Rays, CTs and MRIs CT ANGIO CHEST PULMONARY EMBOLISM IMPRESSION: 1. No evidence for central pulmonary embolism. 2. Moderate cardiomegaly, as well as enlarged main pulmonary artery consistent with pulmonary arterial hypertension. No secondary findings to suggest right congestive heart failure. Dictated by: Juan Petty M.D. on 06/25/2016 at 18:36 X-RAY CHEST ONE VIEW, PORTABLE IMPRESSION: Severe cardiomegaly as before, without acute cardiopulmonary disease. Dictated by: Juan Petty M.D. on 06/25/2016 at 17:10 Cardiac Echo Impressions Echocardiogram Report Interpretation Summary Sinus tachycardia. Severely dilated LV; severely reduced LV systolic function estimated at 20- 25% . EPSS is 1.6 consistent with severe cardiomyopathy. Severe biatrial enlargement. Moderate RV enlargement. No significant valvular abnormalities. No prior study available for comparison. Assessment & Plan Mr. Jones is a very pleasant 61-year-old obese gentleman presents today with Alley and daughter Kasandra, for one and a half month history of chest pain, fatigue and increased "swelling." For the past 1-1/2 months patient has experienced intermittent sharp short-lived chest pain located directly over his left pectoral area. He states that it would come and go without being aggravated by anything in particular and not relieved by anything in particular as well. For 1-1/2 months ago the patient was able to ambulate up stairs at home however since then he has to rest every 4 steps. He also reports severely increased lower extremity edema during that time but eventually spread all the way up to his face. He visited the emergency department twice in the last month in [place] at which point they started him on 40 of Lasix daily. He was referred for an echocardiogram jun 21 2016 which showed a severely reduced ejection fraction of 20-25%. Acute on Chronic systolic Heart failure or HFrEF, present on admission. Active. Trigger unclear but patient compliant with medications and low sodium diet. No evidence of infection. - ECHO as above, EF 20-25% per echo performed on 06/21 - Trending tropes: ACS was ruled out - IV Lasix 80 bid, Almanza in place. - Cardiology aware of patient, recommendations greatly appreciated. -- Cardiology feels that once his euvolemic patient can be taken for left heart catheterization. Dr. Pierce to see the patient on 06/28 -- Cardiology may consider a LifeVest/ICD -- Appreciate Dr. Madrigal recommendations, Dr. Madrigal states stress test 2 years ago was decided to be negative after extensive review. -- Discussed Cath with DR. Mckeon who is plate conditioner on 06/28, who says to keep pt NPO, in case he decides to take him on 06/28. -- Lasix IV 40 mg IV TID Stable angina, present on admission. Active. - Nitropatch completely relieve patient's symptoms, when necessary nitroglycerin patch. - IV morphine for chest pain otherwise uncontrolled with Nitropatch. - Cardiac heparin drip initiated bridging to warfarin. - Cardiology following with recommendations. , - Diurese. - Coronary workup--when improved and stabilized, catheterization including right heart catheterization and left heart catheterization are likely to be needed. Atrial fibrillation, present on admission. Active. - With history of right lower leg DVT and recommendations by cardiology to be on lifelong warfarin, start cardiac In drip and reinitiate warfarin - Cardiology following. -- Coumadin is stopped 06/[address] Pierce in prep for cath Dyspnea on exertion, present on admission. Resolved - Likely secondary to combination atrial fibrillation, congestive heart failure , pulmonary hypertension and obesity hypoventilation syndrome. - CT PE negative. - Nadir/PRN duoneb/albuterol Sleep apnea, present on admission. Active. - Continue nightly CPAP. Morbid obesity, present admission. Active. - Cardiac diet. - Physical therapy recommended. Other chronic conditions. GERD, present admission. Intact. - Continue home omeprazole 20 mg daily. Acetaminophen for mild pain when necessary. Bowel regimen Senna and MiraLAX scheduled and PRN. Zofran when necessary for nausea and vomiting. Cardiac heparin initiated. SCDs in place. Disposition: Patient to be admitted as inpatient status. Likely here for > 2 midnights. Dependent upon respiratory and cardiac status. Will be discharged home when medically stable after receiving a cath procedure. Possible d/c over the weekend vs. Fri depending on what cards decides VTE Prophylaxis: Other (heparin drip) Resuscitation Status: CPR: Attempt Resuscitation (alternate decision maker ) Time spent 25 min Angelia Zamora DO June 28, 2016 08:56
[2016-06-28] MEDS: Fluticasone-Salmeterol 500-50 Inhaler INHALATION SCH ×2 (10:03→20:40)
[2016-06-28] MEDS: Furosemide 10 mg/mL 4 mL Inj IVPUSH SCH ×3 (10:07→20:23)
[2016-06-28] MEDS ORDERED: 0.9% Sodium Chloride 1,000 ML IV ONE (12:42)
[2016-06-28] MEDS ORDERED: [UNRECOGNIZED DRUG - OTHER] IV ONE (12:42)
[2016-06-28] MEDS ORDERED: SODIUM CHLORIDE IV ONE ×2 (12:42→14:12)
--- NOTE | 2016-06-28 12:59 | PCM.PNCARD ---
Subjective Date of service June 28, 2016 Chief Complaint SOB Constitutional: Reports: Weakness, Denies: Chills, Fever ENT: Denies: Ear Discharge, Ear Pain Eyes: Denies: Blurred Vision, Conjunctive Inflammation Cardiovascular: Reports: Edema, SOB on Exertion, Denies: Chest Pain, Irregular Heart Rate, Palpitations, Rapid Heart Rate, SOB while laying flat Respiratory: Reports: SOB with Exertion, Snoring, Denies: Cough, Cough with bloody sputum, Wake up Gasping for Breath, Wake up SOB Gastrointestinal: Denies: Abdominal Pain, Blood in stool (red) Genitourinary: Denies: Dysuria, Hematuria, No burning or pain with urination Musculoskeletal: Reports: Ankle Pain Skin: Denies: Bruising Neurological: Denies: Confusion Exam Vital Signs Vital Sign - Last Date Time Temp Pulse Resp B/P Pulse Ox O2 Delivery O2 Flow Rate FiO2 06/28/16 11:06 36.6 100 18 123/80 95 Room Air Intake and Output 06/27/16 06/27/16 06/28/16 Cumulative From/Thru 15:00 23:00 07:00 06/25/16 16:34 - 06/28/16 06:41 Intake Total 1637 ml 800 ml 6549 ml Output Total 1775 ml 2425 ml 13144 ml Balance -138 ml -1625 ml -7191 ml Intake Oral 1000 ml 800 ml 4660 ml IV Total 637 ml 1889 ml Output Urine Total 1775 ml 2425 ml 57885 ml # Bowel Movements 2 2 General: Pleasant Cooperative Severely obese Skin: Warm & dry to touch Head: Normocephalic Eye: EOMS intact Ears, Nose & Throat: Ears no gross abnormalities Nose no gross abnormalities Neck: Nuchal obesity:JVP assess difficult Chest: No rales or wheeze Cardiac: Regular rhythm Pulses: Distal pulses intact Abdomen: Abdomen soft Obese Extremities: Warm Edema Neurological: Alert & oriented Psychological: Affect & interaction appropriate Lab and Diagnostics Labs CBC Test 06/25/16 16:55 06/27/16 05:52 White Blood Count 6.2th/mm3 (3.8-10.1) Red Blood Count 4.77mil/mm3 (4.40-5.80) Mean Corpuscular Volume 78.2fL (81-100) Mean Corpuscular Hemoglobin 24.3pg (27.0-35.0) Mean Corpuscular Hemoglobin Concent 31.1% (32.0-37.0) Red Cell Distribution Width 17.4% (12.3-15.4) Platelet Count 250bil/L (150-400) Neutrophils (%) (Auto) 68.5% (40-74) Lymphocytes (%) (Auto) 21.0% (14-46) Monocytes (%) (Auto) 8.6% (4-12) Eosinophils (%) (Auto) 1.3% (0-5) Basophils (%) (Auto) 0.3% (0-3) Hemoglobin 11.6g/dL (13.8-17.2) Hematocrit 37.9% (41.0-50.0) CMP Test 06/25/16 16:55 06/26/16 02:00 06/28/16 06:40 Hemoglobin A1c 5.8% Magnesium Level 2.0mg/dL Total Bilirubin 0.5mg/dL Aspartate Amino Transf (AST/SGOT) 33U/L Alanine Aminotransferase (ALT/SGPT) 21U/L Alkaline Phosphatase 73U/L Total Protein 8.3g/dL Albumin 3.7g/dL Troponin T 0.010ug/L Triglycerides Level 45mg/dL Cholesterol Level 131mg/dL LDL Cholesterol, Calculated 63.000mg/dL VLDL Cholesterol 9.000mg/dL HDL Cholesterol 59mg/dL Cholesterol/HDL Ratio 2.22 Sodium Level 140mEq/L Potassium Level 3.9mEq/L Chloride Level 95mEq/L Carbon Dioxide Level 38mmol/L Blood Urea Nitrogen 21mg/dL Creatinine 0.82mg/dL Estimat Glomerular Filtration Rate 102mL/min Glucose Level 117mg/dL Calcium Level 9.1mg/dL Pro-B-Type Natriuretic Peptide 1325pg/mL Thyroid Stimulating Hormone (TSH) 4.280uIU/mL Vital Sign- Last 8 Hours Date Time Temp Pulse Resp B/P Pulse Ox O2 Delivery O2 Flow Rate FiO2 06/28/16 11:06 36.6 100 18 123/80 95 Room Air 06/28/16 10:02 101 125/89 06/28/16 08:00 80 06/28/16 06:15 75 06/28/16 05:45 36.6 67 18 116/73 95 Room Air Intake and Output- Last 8 Hour 06/28/16 Cumulative From/Thru 07:00 06/25/16 16:34 - 06/28/16 06:41 Intake Total 800 ml 6549 ml Output Total 2425 ml 75796 ml Balance -1625 ml -7191 ml Intake Oral 800 ml 4660 ml IV Total 1889 ml Output Urine Total 2425 ml 93990 ml # Bowel Movements 2 Result Diagram: 06/27/16 0552 06/28/16 0640 Additional Diagnostics: Echocardiogram Report Name: RADHA PARDO Date: 06/21/2016 Height: 66 in Hospital Exam Location: [facility] Weight: 349 lb Gender: Male BSA: 2.5 m2 : 1955 Age: 61 yrs BP: 124/82 mmHg Reason For Study: SOB Performed By: Andrey Dumont Referring Physician: COREY BRIGHT Interpretation Summary Sinus tachycardia. Severely dilated LV; severely reduced LV systolic function estimated at 20- 25%. EPSS is 1.6 consistent with severe cardiomyopathy. Severe biatrial enlargement. Moderate RV enlargement. No significant valvular abnormalities. No prior study available for comparison. Procedure: A two-dimensional transthoracic echocardiogram with color flow and Doppler was performed. The study quality was technically difficult. There is no prior echocardiogram noted for this patient. A contrast injection of Definity was performed to improve assessment of LV function. Contrast was injected into an intravenous site in the right arm. The heart rate ranged between 88-114 bpm during the study. Left Ventricle: The left ventricle is severely dilated. Left ventricular wall thickness is mildly increased. Left ventricular systolic function is moderately reduced. The ejection fraction is estimated to be 20-25%. There is mild to moderate global hypokinesis of the left ventricle. Right Ventricle: The right ventricle is moderately dilated. Atria: The left atrium is severely dilated. The right atrium is severely dilated. There is no Doppler evidence for an atrial septal defect. Mitral Valve: The mitral valve is not well visualized. The mitral valve is grossly normal. The PLMV appears to bow towards the LA when closing. There is trace mitral regurgitation. Aortic Valve: The aortic valve is trileaflet. The aortic valve opens well. No aortic regurgitation is present. Tricuspid Valve: The tricuspid valve leaflets are thin and pliable. There is mild tricuspid regurgitation. Pulmonic Valve: The pulmonic valve is not well seen, but is grossly normal. There is a trace or physiologic amount of pulmonic regurgitation. Great Vessels: The aortic root is normal size. The ascending aorta is at the upper limits of normal in size. The pulmonary artery is not well visualized, but is probably normal size. The inferior vena cava was not visualized. Pericardium/ Pleura Th Assessment & Plan Problems: (1) Acute on chronic systolic (congestive) heart failure Plan: Improving. He thinks he can lie on his back w/o getting SOB. I have asked him to see if he can lie in supine position for 1 hour. If so, then we will tentatively schedule him for a heart cath this afternoon. I will like to perform via radial artery due to his morbid obesity and large panes. He has been placed on pretty good medical therapy and we will continue to titrate his meds. He is developing some pre-renal azotemia so will probably go ahead and switch him to oral furosemide after the heart cath but we can also check his LVEDP and see if we need to continue with aggressive diuretic therapy. Patient was explain about all the risks and benefits with procedure. I showed him a vide of heart catheterization and PCI. He understands the procedure and what it entails. Status: Acute ICD Code: I50.23 (2) Anasarca Status: Chronic ICD Code: R60.1 (3) Pulmonary hypertension Status: Chronic ICD Code: I27.2 Pain Evaluation: Adequate Pain Control VTE Prophylaxis: Other (heparin drip) Resuscitation Status: CPR: Attempt Resuscitation (alternate decision maker ) Time spent 30 minutes Tony Nuno MD June 28, 2016 12:59
[2016-06-28] MEDS ORDERED: Heparin 10,000 Unit/1,000 mL NS Premix IV ONE (13:39)
[2016-06-28] MEDS ORDERED: Heparin 1,000 Unit/mL 10 mL Inj ONE (13:39)
[2016-06-28] MEDS ORDERED: Nitroglycerin 50,000 mcg/250 mL D5W Premix IV ONE (13:39)
[2016-06-28] MEDS ORDERED: Heparin 1,000 Units/500 mL NS Premix IV ONE (13:39)
[2016-06-28] MEDS ORDERED: Verapamil 2.5 mg/mL 2 mL Inj ONE (13:39)
--- NOTE | 2016-06-28 14:07 | NUR ---
Off Unit/Heparin gtt Patient off floor to blood bank laboratory professional via bed. Heparin gtt stopped.
[2016-06-28] MEDS ORDERED: fentaNYL-PF 50 mCg/mL 2 mL Inj ONE (14:17)
[2016-06-28] MEDS ORDERED: 0.9% Sodium Chloride 250 ML IV SCH (15:01)
[2016-06-28] MEDS ORDERED: Ondansetron 2 mg/mL 2 mL Inj IVPUSH PRN (15:05)
[2016-06-28] MEDS ORDERED: Atropine 1 mg/10 mL (Code) Syringe IVPUSH PRN (15:05)
[2016-06-28] MEDS ORDERED: HYDROcodone-APAP 5-325 mg Tablet PO PRN (15:05)
--- NOTE | 2016-06-28 15:13 | PCM.CVCATH ---
Cardiac Cath Report Date of Service June 28, 2016 Primary Indication 61-year-old male with acute onset of CHF. The patient has been appropriately diuresed over the past 3 days. He is much improved. The patient's here for cardiac catheterization to assess his coronaries and LVEDP. Procedure 1. Left heart catheterization 2. Selective coronary and to come Vascular Access Right radial artery Procedure Details The patient was prepped and sterilized in the appropriate fashion. Timeout was taken. Local anesthetic to the right radial region with lidocaine 1%. Using the ultrasound the right radial artery was accessed with 21-gauge Cook needle. A 6 Vietnamese sheath was inserted in the right radial artery. Heparin 5000 units IV was given immediately. The sheath was flushed with nitroglycerin 200 g/ Verapamil 1 mg. Catheter insertions and exchanges were performed over the J- wire unless otherwise noted. A 6 Vietnamese FL 3.5 diagnostic catheter was inserted and engaged in the left main. The left coronary angiography was performed in multiple views. The catheter was exchanged over a long J-wire for 6 Vietnamese are 4 diagnostic catheter. The right coronary angiography was performed in multiple views. Same catheter was used to check the left ventricular hemodynamics. Pullback was performed. The catheter was removed over the wire. Sheath was removed and a TR band was applied. There were no immediate complications. Total contrast is 70 mL Total blood lose is 10 mL Total fluoroscopy time is 3.6 minutes Total fluoroscopy dose is 1344 mGy Findings 1. Hemodynamics: The left ventricular systolic pressure was estimated at 112 mmHg and the left ventricular end-diastolic pressure was estimated at 13 mmHg. There is no significant gradient during pullback. The aortic system pressure was 111/73 mmHg. 2. Selective coronary angiography: A. Left main: The artery has no evidence of significant disease. It bifurcates into the left anterior descending and left circumflex arteries. B. Left anterior descending artery: There is no evidence of significant disease. C. Left circumflex artery: This is a nondominant vessel with no evidence of significant disease. D. Right coronary artery: This is a dominant vessel which shows no evidence of significant disease. Summary 1. Normal coronaries angiographically 2. Normal left ventricular filling pressures. 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 Continue with aggressive medical therapy. The patient will slowly be jacket changer to oral diuretics. If by tomorrow patient continues to improve then he may be discharged to home. The patient will need a close follow-up in 2-[address] Pierce. copies to: Jade Pierce MD, Oscar J MD June 28, 2016 15:13
[2016-06-28] MEDS: SODIUM CHLORIDE IV SCH (15:15)
--- NOTE | 2016-06-28 15:20 | NUR ---
Received Received from director of cath lab at 1500. VSS. Denies pain. TR band intact to right wrist. No bleeding or hematoma. Taking po fluids well. brought to bedside. Continue to monitor per orders.
--- NOTE | 2016-06-28 18:33 | NUR ---
Back on Unit Patient back on floor from [facility] in stable condition. Denies pain and nausea. Call light and tray table within reach. Will continue to monitor patient hourly.
--- NOTE | 2016-06-28 18:52 | NUR ---
Transfer TR band removed at 1800. Dressing placed. VSS. Tele SR. Report to MARY ANNE Fernandez RN. Transported to 3016 via bed at 1830 in no distress.
[2016-06-28] MEDS ORDERED: Heparin 5,000 Unit/mL Inj IVPUSH ONE (19:35)
[2016-06-28] MEDS ORDERED: Heparin 25,000 UNIT in 0.9% Sodium Chloride 475 ML IV PRN (19:45)
[2016-06-29] MEDS: Sodium Chloride LOK Flush 10 mL Syringe IVFLUSH SCH ×4 (00:30→08:54)
[2016-06-29 01:13] VITALS: BP 104/66; PULSE 99; RESP 20; O2SAT 96
[2016-06-29] MEDS: SODIUM CHLORIDE IV SCH (05:33)
[2016-06-29 05:40] VITALS: PULSE 79
[2016-06-29 05:45] VITALS: BP 98/63; PULSE 73; RESP 18; O2SAT 96
--- NOTE | 2016-06-29 07:13 | NUR ---
Heparin drip Per Dr Zamora Pt was re-started on heparin drip and given bolus. Pts Ptt re-check was therapeutic and no changes were made. next Ptt ordered. Pt had an uneventful night and slept most of the shift.
[2016-06-29 08:00] VITALS: PULSE 76
[2016-06-29 08:40] VITALS: PULSE 78; RESP 18; O2SAT 97
[2016-06-29 08:49] LABS: INR 1.06 ratio
[2016-06-29] MEDS: Fluticasone-Salmeterol 500-50 Inhaler INHALATION SCH (08:53)
[2016-06-29] MEDS: Furosemide 10 mg/mL 4 mL Inj IVPUSH SCH (08:55)
[2016-06-29] MEDS ORDERED: Heparin 25K Unit/500mL 0.45 NS 25,000 UNIT in IV Premix 1 EACH IV SCH (09:35)
--- NOTE | 2016-06-29 09:42 | NUR ---
Heparin gtt Heparin gtt ordered based on kg for changes, verified with MD Zmaora to use eMAR protocol for dosing versus house cardiac protocol and MD stated to use her ordered Heparin gtt. Pharmacy notified as well. Verified with knitting tester, Domingo Maddox that based on wt of 136kg, and PTT result of 31 the following changes to be made: give bolus of 6800 units and increase rate by 544units/hr. New rate 1544u/hr. Next check in 6 hours.
[2016-06-29] MEDS: Heparin Protocol Boluses IVPUSH PRN (09:45)
[2016-06-29 10:28] VITALS: BP 115/65; PULSE 70; RESP 18; O2SAT 93
[2016-06-29] MEDS ORDERED: PRA20 PO (11:06)
[2016-06-29] MEDS ORDERED: ASPI81TA3 PO (11:06)
[2016-06-29] MEDS ORDERED: LISI-571 PO (11:06)
[2016-06-29] MEDS ORDERED: CARV3.122 PO (11:06)
[2016-06-29] MEDS ORDERED: SPIR25TA PO (11:06)
[2016-06-29] MEDS ORDERED: APIX5TAB PO (11:08)
--- NOTE | 2016-06-29 11:14 | PCM.DIMED ---
Discharge Instructions Date of Service June 29, 2016 Dates of Hospitalization June 25, 2016 at 19:56 Discharge Diagnosis Discharge Diagnosis Acute on chronic systolic HF, Stable Angina, Atrial Fibrillation/Hx of DVT, LUKAS , Morbid Obesity Diet Heart Healthy Activity No restrictions Call your provider Fever or Chills, Shortness of breath, Bleeding, Chest pain, Vomitting, Excessive diarrhea, Weakness (unilateral), Other Patient Instructions Follow-up plan Please follow up with Dr. Harris in ten days. Please follow up wi PCP in 2 weeks. Discuss a Sleep study with PCP to address LUKAS F/U BMP in 1 week prior to seeing Angelia Segundo DO June 29, 2016 11:14
[2016-06-29] MEDS ORDERED: POTA10CA42 PO (11:18)
--- NOTE | 2016-06-29 11:21 | NUR ---
Social Work: Readiness for Discharge D: EMR reviewed. Pt is on day 4 of hospitalization. PT recommends HH as of 06/29. SW discussed HH services with pt pertaining to CHF diagnosis and PT recommendations. Pt declines HH. SW does not anticipate any further discharge needs at this time. Pt to transport home with spouse via POV when medically stable. SW will continue to follow if needs arise. A: Pt who is independent at baseline. P: Pt to discharge home with spouse via POV when medically stable. No further discharge planning needs anticipated at this time. SW will continue to follow if needs arise. DELMI Harp Addendum: 06/29/16 at 1155 by AYANNA VEE SW called [facility] to confirm they carry Eloquis. SW faxed Rx for Eloquis and face sheet to [facility] at pt's request.
[2016-06-29] MEDS ORDERED: FURO40TA4 PO (11:33)
--- NOTE | 2016-06-29 13:03 | NUR ---
DISCHARGE Pt discharged home this afternoon at 1300, off unit in w/c accompanied by CHANNEL CEMENTER INSOLE MACHINE. Vital signs stable, alert and oriented, denies any pain and in no apparent distress. IV dc'd intact x2. All belongings returned. All instructions for diet, activity, medications, prescriptions and follow up reviewed with patient who reports understanding. Additional education done re: monitoring for s/sx of bleeding due to Heparin gtt and new prescription for Eliquis as well as wound care for R wrist.
--- NOTE | 2016-06-29 13:04 | NUR ---
Social Work: Discharge D: EMR reviewed. Pt is on day 4 of hospitalization. JOY met with pt and spouse in room to discuss discharge plan. PT recommends HH as of 06/29. SW discussed HH services with pt pertaining to CHF diagnosis and PT recommendations. Pt declines HH. JOY faxed Rx for Eloquis to [facility] and informed pt of $24 co-pay. SW does not anticipate any further discharge needs at this time. Pt to transport home with spouse via POV today. Pt and spouse agreeable to discharge plan. A: Pt who is independent at baseline. P: Pt to discharge home with spouse via POV today. JOY faxed Rx to [facility] and confirmed co-pay with pt and spouse. Pt and spouse agreeable to discharge plan. No further discharge planning needs anticipated at this time. DELMI Harp
--- NOTE | 2016-06-29 23:57 | PCM.DC.MED ---
Discharge Summary Date of Service June 29, 2016 Dates of Hospitalization Date of Hospital Admission June 25, 2016 at 19:56 Date of Discharge: June 29, 2016 Providers: Admitting Physician: Prabhjot Rosa MD Primary Care Physician: Nick Roberson MD Attending Physician: Prabhjot Rosa MD Diagnosis at Time of Discharge Diagnosis at Time of Discharge Acute on chronic systolic HF, Stable Angina, Atrial Fibrillation/Hx of DVT, LUKAS , Morbid Obesity Consultations Cardiology Procedures XRay, CTs & MRIs CT ANGIO CHEST PULMONARY EMBOLISM IMPRESSION: 1. No evidence for central pulmonary embolism. 2. Moderate cardiomegaly, as well as enlarged main pulmonary artery consistent with pulmonary arterial hypertension. No secondary findings to suggest right congestive heart failure. Dictated by: Juan Petty M.D. on 06/25/2016 at 18:36 X-RAY CHEST ONE VIEW, PORTABLE IMPRESSION: Severe cardiomegaly as before, without acute cardiopulmonary disease. Dictated by: Juan Petty M.D. on 06/25/2016 at 17:10 Cardiac Echo Impression Echocardiogram Report Interpretation Summary Sinus tachycardia. Severely dilated LV; severely reduced LV systolic function estimated at 20- 25% . EPSS is 1.6 consistent with severe cardiomyopathy. Severe biatrial enlargement. Moderate RV enlargement. No significant valvular abnormalities. No prior study available for comparison. Other Diagnostics Cardiac Cath Report Date of Service June 28, 2016 Summary 1. Normal coronaries angiographically 2. Normal left ventricular filling pressures. 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 Continue with aggressive medical therapy. 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 If by tomorrow patient continues to improve then he may be discharged to home. The patient will need a close follow-up in 2-[address] Pierce. copies to: Jade Pierce MD, Oscar J MD June 28, 2016 15:13 <Electronically signed by Tony Nuno MD> 06/28/16 1517 Brief History Mr. Jones is a very pleasant 61-year-old obese gentleman presents today with Alley and daughter Kasandra, for one and a half month history of chest pain, fatigue and increased "swelling." He has a past medical history significant for DVT of the right lower leg at which point he was started on warfarin roughly 1 1/2 years ago and he reports discontinuing warfarin in January without consult physician. 5 year history of sleep apnea without use of CPAP machine, asthma, pulmonary hypertension. For the past 1-1/2 months patient has experienced intermittent sharp short-lived chest pain located directly over his left pectoral area. He states that it would come and go without being aggravated by anything in particular and not relieved by anything in particular as well. For 1-1/2 months ago the patient was able to ambulate up stairs at home however since then he has to rest every 4 steps. He also reports severely increased lower extremity edema during that time but eventually spread all the way up to his face. He visited the emergency department twice in the last month in [place] at which point they started him on 40 of Lasix daily. He was referred for an echocardiogram jun 21 2016 which showed severely reduced ejection fraction of 20-25%. He denies dizziness, syncope, change in vision, headache, shortness of breath at rest, cough, nausea, vomiting, fever, chills, abdominal pain, dysuria, constipation or diarrhea, and no pain of any sort. No distal extremity pain bilaterally. Patient reports chest pain relieved with nitroglycerin patch, dyspnea on exertion. He is currently taking 80 of Lasix daily, 120 mEq of potassium daily, 20 mg daily omeprazole, Advair twice a day and for the past month patient has been using his Provera 5-6 times per day which is an increase from once per week before that time. In the emergency department patient's temperature was 37.1, pulse 101, respiratory rate 19, blood pressure 151/86, pulse ox 100% on room air. EKG showed atrial fibrillation with a rate of around 100. Chest x-ray showed cardiomegaly and angiography CT confirmed cardiomegaly, with no pulmonary embolism. Hospital Course Mr. Jones is a very pleasant 61-year-old obese gentleman presents today with Alley and daughter Kasandra, for one and a half month history of chest pain, fatigue and increased "swelling." For the past 1-1/2 months patient has experienced intermittent sharp short-lived chest pain located directly over his left pectoral area. He states that it would come and go without being aggravated by anything in particular and not relieved by anything in particular as well. For 1-1/2 months ago the patient was able to ambulate up stairs at home however since then he has to rest every 4 steps. He also reports severely increased lower extremity edema during that time but eventually spread all the way up to his face. He visited the emergency department twice in the last month in [place] at which point they started him on 40 of Lasix daily. He was referred for an echocardiogram jun 21 2016 which showed a severely reduced ejection fraction of 20-25%. Acute on Chronic systolic Heart failure or HFrEF, present on admission. Active. Trigger unclear but patient compliant with medications and low sodium diet. No evidence of infection. - ECHO as above, EF 20-25% per echo performed on 06/21 - Trending tropes: ACS was ruled out - IV Lasix 80 bid, Almanza in place. - Cardiology aware of patient, recommendations greatly appreciated. -- Cardiology feels that once his euvolemic patient can be taken for left heart catheterization. Dr. Pierce to see the patient on 06/28 -- Cardiology may consider a LifeVest/ICD -- Appreciate Dr. Madrigal recommendations, Dr. Madrigal states stress test 2 years ago was decided to be negative after extensive review. -- Discussed Cath with DR. Mckeon who is patient transition specialist on 06/28, who says to keep pt NPO, in case he decides to take him on 06/28. -- The patient underwent a Procedure which showed nonischemic dilated cardiomyopathy. -- Patient's Lasix has not increased as there was a recent increase to this medication per patient. We did change his dosage to Lasix 40 mg twice a day. We did give him spironolactone scrips however. Also optimize his therapy for CHF with a beta santos, lisinopril, statin -Patient is ambulating on the day of discharge, not tolerating normal diet. He no longer has exertional dyspnea or any oxygen requirements. - Stable angina, present on admission. Active. - Nitropatch completely relieve patient's symptoms, when necessary nitroglycerin patch. - IV morphine for chest pain otherwise uncontrolled with Nitropatch. - Cardiac heparin drip initiated bridging to warfarin. - Cardiology following with recommendations. , - Diurese. -Patient underwent a cardiac catheterization procedure on the 06/28, no significant blockage was found. He started to have nonischemic dilated cardiomyopathy Atrial fibrillation, present on admission. Active. - With history of right lower leg DVT and recommendations by cardiology to be on lifelong warfarin, start cardiac In drip and reinitiate warfarin - Cardiology following. -- Coumadin is stopped 06/[address] Pierce in prep for cath: Following his Procedure patient was briefly put on heparin drip this time DVT PE protocol -- On the day of discharge he is planning a cruise 5 mg by mouth twice a day, scripts were given to patient Dyspnea on exertion, present on admission. Resolved - Likely secondary to combination atrial fibrillation, congestive heart failure , pulmonary hypertension and obesity hypoventilation syndrome. - CT PE negative. - Nadir/PRN duoneb/albuterol Sleep apnea, present on admission. Active. - Continue nightly CPAP. Morbid obesity, present admission. Active. - Cardiac diet. - Physical therapy recommended. Other chronic conditions. GERD, present admission. Intact. - Continue home omeprazole 20 mg daily. Acetaminophen for mild pain when necessary. Bowel regimen Senna and MiraLAX scheduled and PRN. Zofran when necessary for nausea and vomiting. Exam Vital Signs (Last) Date Time Temp Pulse Resp B/P Pulse Ox O2 Delivery O2 Flow Rate FiO2 06/29/16 10:28 36.5 70 18 115/65 93 Room Air 06/28/16 18:00 2.00 Exam General: NAD HEENT: NCAT Neck: Right side positive for JVD. Abd: Obese, NT/ND, normal BS Ext: Much much improved, positive for chronic venous stasis w/o erythema Psych: neg for anxiety Neuro: No focal deficits Test 06/25/16 16:55 06/26/16 02:00 06/27/16 05:52 06/28/16 06:40 White Blood Count 6.2th/mm3 (3.8-10.1) Red Blood Count 4.77mil/mm3 (4.40-5.80) Mean Corpuscular Volume 78.2fL (81-100) Mean Corpuscular Hemoglobin 24.3pg (27.0-35.0) Mean Corpuscular Hemoglobin Concent 31.1% (32.0-37.0) Red Cell Distribution Width 17.4% (12.3-15.4) Platelet Count 250bil/L (150-400) Neutrophils (%) (Auto) 68.5% (40-74) Lymphocytes (%) (Auto) 21.0% (14-46) Monocytes (%) (Auto) 8.6% (4-12) Eosinophils (%) (Auto) 1.3% (0-5) Basophils (%) (Auto) 0.3% (0-3) Hemoglobin A1c 5.8% (4.8-5.6) Magnesium Level 2.0mg/dL (1.6-2.6) Total Bilirubin 0.5mg/dL (0.0-1.2) Aspartate Amino Transf (AST/SGOT) 33U/L (0-50) Alanine Aminotransferase (ALT/SGPT) 21U/L (0-44) Alkaline Phosphatase 73U/L (25-160) Total Protein 8.3g/dL (6.4-8.4) Albumin 3.7g/dL (3.4-5.0) Troponin T 0.010ug/L (0.0-0.011) Triglycerides Level 45mg/dL (0-149) Cholesterol Level 131mg/dL (100-199) LDL Cholesterol, Calculated 63.000mg/dL (0-99) VLDL Cholesterol 9.000mg/dL HDL Cholesterol 59mg/dL (>39) Cholesterol/HDL Ratio 2.22 (0.0-4.4) Hemoglobin 11.6g/dL (13.8-17.2) Hematocrit 37.9% (41.0-50.0) Pro-B-Type Natriuretic Peptide 1325pg/mL (0-210) Thyroid Stimulating Hormone (TSH) 4.280uIU/mL (0.450-4.500) Test 06/29/16 08:10 Prothrombin Time 11.4sec (8.1-12.5) Prothromb Time International Ratio 1.06ratio Activated Partial Thromboplast Time 31.6sec (22.8-33.0) Sodium Level 137mEq/L (134-144) Potassium Level 4.4mEq/L (3.5-5.2) Chloride Level 96mEq/L (97-108) Carbon Dioxide Level 27mmol/L (18-29) Blood Urea Nitrogen 22mg/dL (6-24) Creatinine 0.87mg/dL (0.76-1.27) Estimat Glomerular Filtration Rate 95mL/min (>59) Glucose Level 90mg/dL (60-99) Calcium Level 9.2mg/dL (8.5-10.1) Discharge Medications Discharge Medications Apixaban (Eliquis) 5 Mg Tablet 5 MG PO BID Prescribed by: ANGELIA DESIA DO Aspirin Chew (Aspirin Chew) 81 Mg Chew 81 MG PO DAILY Prescribed by: ANGELIA DESAI DO Carvedilol (Carvedilol) 3.125 Mg Tablet 3.125 MG PO BIDWM Prescribed by: ANGELIA DESAI DO Fluticasone/Salmeterol (Advair 500-50 Diskus) 1 Each Disk.w.dev 2 PUFF IH BID ( Reported) Furosemide (Furosemide) 40 Mg Tablet 40 MG PO BID Prescribed by: ANGELIA DESAI DO Lisinopril (Lisinopril) 5 Mg Tablet 2.5 MG PO DAILY Prescribed by: ANGELIA DESAI DO Omeprazole (Omeprazole) 20 Mg Capsule.dr 20 MG PO QAM (Reported) Potassium Chloride (Potassium Chloride) 10 Meq Capsule.er 10 MEQ PO DAILY TAKE WITH FOOD Prescribed by: ANGELIA DESAI DO Pravastatin (Pravachol) 20 Mg Tablet 10 MG PO HS Prescribed by: ANGELIA DESAI DO Spironolactone (Aldactone) 25 Mg Tablet 12.5 MG PO DAILY Prescribed by: ANGELIA DESAI DO As needed Albuterol HFA (Proair HFA) 8.5 Gm Hfa.aer.ad 2 PUFFS IH Q4 PRN PRN For Shortness of Breath (Reported) Followup Plan Follow-up plan Please follow up with Dr. Harris in ten days. Please follow up [facility] PCP in 2 weeks. Discuss a Sleep study with PCP to address LUKAS F/U BMP in 1 week prior to seeing Dr. Harris Discharge Diet: Heart Healthy Discharge Activity: No restrictions Time spent 45 min Angelia Desai DO June 29, 2016 23:57
== END 2016-06-29 13:00 | disposition home or self-care (01) | DRG 287 ==
LOC: SED 16:18 → MPC 19:56 → OBSVTOIN 19:56 → MPC 20:05
PROVIDERS: ADMIT Hospitalist; ATTEND Hospitalist
PROC: 4A023N7 Measurement of Cardiac Sampling and Pressure, Left Heart, Percutaneous Approach (ICD-10-PCS; principal; 2016-06-28)
PROC: B2111ZZ Fluoroscopy of Multiple Coronary Arteries using Low Osmolar Contrast (ICD-10-PCS; 2016-06-28)
DX: I50.23 Acute on chronic systolic (congestive) heart failure (principal); Z68.42 Body mass index [BMI] 45.0-49.9, adult; I42.9 Cardiomyopathy, unspecified; J45.909 Unspecified asthma, uncomplicated; I27.2 Other secondary pulmonary hypertension; E66.01 Morbid (severe) obesity due to excess calories; G47.33 Obstructive sleep apnea (adult) (pediatric); I20.9 Angina pectoris, unspecified; K21.9 Gastro-esophageal reflux disease without esophagitis; I20.8 Other forms of angina pectoris; Z79.82 Long term (current) use of aspirin; Z79.51 Long term (current) use of inhaled steroids; Z82.49 Family history of ischemic heart disease and other diseases of the circulatory system; Z86.718 Personal history of other venous thrombosis and embolism